=== PATIENT | male | born 1995 | race Caucasian/White ===

== ENCOUNTER 2018-10-16 15:20 | Observation (INO) | payer OTHER ==
[2018-10-16 15:52] VITALS: BMI 21.8
[2018-10-16 16:51] LABS: BASO % 0.5 % (0-2.0); EOS % 0.6 % (0-4.5); HEMATOCRIT 42.8 % (35.4-49); HEMOGLOBIN 14.9 GM/dL (11.7-16.9); LYMPH % 12.1 % (8-40); MCH 30.6 pg (25.7-33.7); MCHC 34.8 g/dl (32.0-35.9); MEAN CELL VOLUME 87.8 fl (80-96); MONO % 10.8 % (3.8-10.2); PLATELET COUNT 186 K/MM3 (134-434); RBC 4.87 M/mm3 (4.00-5.60); RDW 13.3 % (11.9-15.9); WHITE BLOOD COUNT 10.2 K/mm3 (4.0-10.0)
--- NOTE | 2018-10-16 16:51 | PDOC ---
History of Present Illness - General Chief Complaint: Pain Stated Complaint: SENT BY PCP Time Seen by Provider: 10/16/18 15:44 History Source: Patient, Family Exam Limitations: No Limitations - History of Present Illness Initial Comments: 10/16/18 16:42 Oneal Zheng is a 23 year old previously healthy male presenting with abdominal pain and new onset jaundice. Last night felt subjective fever to 99F along with episodes of vomiting yellow fluids and bilateral abdominal pain. Took one advil for fever which brought temp down to 97F. First episode of jaundice reported, no previous history of liver disease noted. Has history of one month of poor PO intake due to abd pain after eating, report 6-7lb weight loss in 3 weeks. Not eating much, denies fatty foods. Increased belching. Complains of suprapubic and bilateral UQ abd pain. Last month worked up for GC infection due to burning with urination and testicular pain, completed course of doxycycline, but testicular pain and burning persists. Denies hematuria, urine darker than normal. Denies alcohol use in last year, non-smoker, denies drug use. 10/16/18 20:18 Past History - Past Medical History Allergies/Adverse Reactions: Allergies Allergy/AdvReac Type Severity Reaction Status Date / Time No Known Allergies Allergy Verified 10/16/18 20:10 Home Medications: Ambulatory Orders No Home Medications 0 dose .ROUTE UTDICT 01/18/13 COPD: No - Suicide/Smoking/Psychosocial Hx Smoking Status: No Smoking History: Never smoked Have you smoked in the past 12 months: No Number of Cigarettes Smoked Daily: 0 Information on smoking cessation initiated: No Hx Alcohol Use: No Drug/Substance Use Hx: No Review of Systems - Review of Systems Constitutional: Yes: Fever, Loss of Appetite, Unintentional Wgt. Loss. No: Chills, Night Sweats, Weakness HEENTM: No: Blurred Vision, Hearing Loss, Difficulty Swallowing Respiratory: No: Cough, Shortness of Breath, Productive cough, Hemoptysis Cardiac (ROS): No: Chest Pain, Edema, Palpitations ABD/GI: Yes: Vomiting. No: Abdominal Distended, Constipated, Diarrhea, Rectal Bleeding, Abdominal cramping : Yes: Burning, Dysuria, Frequency, Flank Pain (R sided radiating to back). No: Discharge, Hematuria, Incontinence Musculoskeletal: No: Symptoms Reported Integumentary: No: Symptoms Reported Neurological: No: Symptoms reported *Physical Exam - Vital Signs Last Vital Signs Temp Pulse Resp BP Pulse Ox 98.6 F 99 H 18 134/89 97 10/16/18 15:50 10/16/18 15:50 10/16/18 15:50 10/16/18 15:50 10/16/18 15:50 - Physical Exam General Appearance: Yes: Nourished, Appropriately Dressed, Thin. No: Apparent Distress HEENT: positive: EOMI, HUGO, Normal Voice, Symmetrical, Scleral Icterus (R), Scleral Icterus (L). negative: Muffled/Hoarse voice, Pharyngeal Erythema, Rhinorrhea Neck: positive: Trachea midline, Supple. negative: Tender, Lymphadenopathy (R) , Lymphadenopathy (L) Respiratory/Chest: positive: Lungs Clear, Normal Breath Sounds. negative: Chest Tender, Respiratory Distress, Accessory Muscle Use Cardiovascular: positive: Regular Rhythm, Regular Rate. negative: Edema, Murmur , Gallop/S3, Gallop/S4 Gastrointestinal/Abdominal: positive: Normal Bowel Sounds, Tender (suprapubic tenderness, with bilateral UQ tenderness to palpation, negative murphys sign), Soft. negative: Organomegaly Male Genitalia: positive: other (Externa exam of genitalia shows uncircumcised penis with some circumferential erythema around the urethral opening with some urine and no visible pus. Meatus is non-tender with retraction of foreskin. No inguinal hernias noted bilaterally. Testicles are normal-appearing externally and non-tender to palpation. Patient reports some tenderness in the perineal region with palpation of testes.) Rectal Exam: positive: normal rectal tone, other (External exam shows some light erythema on the posterior buttocks around the region of the coccyx consistent with some minor irritation. External appearance of the anus shows no hemorrhoids or signs of bleeding. Prostate at 6 o'clock feels enlarged with tenderness to light and deep palpation. Rectal temperature 98.0F.). 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 Given patient's new onset fever with jaundice and diffuse abdominal pain after a period of loss of appetite and weight loss consistent with biliary pathology, most likely concerning for cholangitis vs. pancreatitis vs. gallstones. Will evaluate with CMP, CBC, direct bili, and abd US with abd CT. Jaundice could also be explained by hemolytic anemia vs. hepatic pathology such as hepatitis, ordering pertinent labs per PCP. Suprapubic pain, testicular pain, and dysuria with CVA tenderness concerning for persistent chlyamydia urethritis vs. UTI vs. pyelo, will evaluate with UA/ UC and abd US/CT. 10/16/18 17:37 UA shows high number bacteria with blood and positive leuk esterase and nitrites concerning for UTI vs. renal calculus, will reassess for this on CT abd. 10/16/18 17:52 B team conferred with PCP Dr. Garcia, will admit to Med/Surg under his service. 10/16/18 19:09 Performed a genitalia exam, found some periurethral erythema with urine flow, non-tender meatus, no inguinal hernias, but some tenderness to perineal area. Subsequent rectal exam reveals enlarged and tender prostate concerning for prostatitis, will confirm with CT abd read. 10/16/18 19:[address] Alarcon, no CT evidence of prostatic abscess, large vessels may support diagnosis of prostatitis. No clear evidence of any prostatic abscess. Unusual presentation of prostate tenderness after suspected chlamydia infection treated with outpatient doxycycline suggests failure of outpatient tx for STI vs. abnormal urological anatomy, and may be contributing to current UTI. UTI tx with ceftriaxone, consider 500mg levofloxacin qd for 6 weeks for tx of acute prostatitis. Cause of jaundice unclear at this time, bilirubin mildly elevated but otherwise hepatic labs WNL. Concern for infection-induced hemolysis vs. infection as trigger for familial/genetic anemia syndrome, hemolysis labs sent. *DC/Admit/Observation/Transfer Diagnosis at time of Disposition: Abdominal pain, UTI (urinary tract infection), Jaundice - Discharge Dispostion Decision to Admit order: Yes - Referrals - Patient Instructions - Post Discharge Activity
[2018-10-16 17:06] LABS: INR 1.28 (0.83-1.09); PROTHROMBIN TIME (PATIENT) 15.1 SEC (9.7-13.0)
[2018-10-16 17:09] LABS: ACTIVATED PTT 34.6 SECONDS (25.2-36.5)
[2018-10-16 17:19] LABS: EPI CELLS 1.1 /HPF (0-5/HPF); HYALINE CASTS 3 /lpf (0-8); PH,URINE 5.5 (5.0-8.0); URINE APPEARANCE TURBID; URINE BACTERIA 5879.8 /hpf (NEGATIVE); URINE BILIRUBIN NEGATIVE (NEGATIVE); URINE COLOR YELLOW; URINE GLUCOSE (UA) NEGATIVE (NEGATIVE); URINE KETONE TRACE (NEGATIVE); URINE LEUK ESTERASE 3+ (NEGATIVE); URINE NITRITE POSITIVE (NEGATIVE); URINE PROTEIN 2+ (NEGATIVE); URINE WBC 1494 /hpf (0-5)
[2018-10-16 17:23] LABS: ALBUMIN 4.5 g/dl (3.4-5.0); BLOOD UREA NITROGEN 10.6 mg/dL (7-18); CALCIUM 9.1 mg/dL (8.5-10.1); MAGNESIUM 2.3 mg/dL (1.8-2.4); POTASSIUM 3.8 mmol/L (3.5-5.1)
--- NOTE | 2018-10-16 17:32 | PDOC ---
Documentation entered by Davon Orozco SCRIBE, acting as scribe for Karlene Christiansen MD. Karlene Christiansen MD: This documentation has been prepared by the Ernesto reynolds Daniel, SCRIBE, under my direction and personally reviewed by me in its entirety. I confirm that the documentation accurately reflects all work, treatment, procedures, and medical decision making performed by me. Attending Attestation - Resident Resident Name: Antonio Paul - HPI HPI: 10/16/18 16:32 The patient is a 23 year old male with a past medical history of chlamydia here today for evaluation of jaundice, fever, and abdominal pain. The patient reports that he has had 1 month of left sided abdominal pain that migrated to his right upper quadrant. He notes mucous in his stool during this time. Patient reports nausea and vomiting last night and he woke up this morning with jaundice and fever. He also notes burning with urination. Patient denies headache, lightheadedness. Denies chills. Denies chest pain, shortness of breath. Denies diarrhea. Allergies: NKA PCP: Schuyler Garcia - Physicial Exam PE: 10/16/18 16:40 GENERAL: Awake, alert, and fully oriented, in no acute distress HEAD: No signs of trauma EYES: PERRLA, EOMI, sclera icteric, conjunctiva clear ENT: +tongue icteric. Auricles normal inspection, hearing grossly normal, nares patent, oropharynx clear without exudates. Moist mucosa NECK: Normal ROM, supple, no lymphadenopathy, JVD, or masses LUNGS: Breath sounds equal, clear to auscultation bilaterally. No wheezes, and no crackles HEART: Regular rate and rhythm, normal S1 and S2, no murmurs, rubs or gallops ABDOMEN: +tenderness in epigastrum and right upper quadrant. Soft, normoactive bowel sounds. No guarding, no rebound. No masses EXTREMITIES: Normal range of motion, no edema. No clubbing or cyanosis. No cords, erythema, or tenderness NEUROLOGICAL: Cranial nerves II through XII grossly intact. Normal speech, normal gait SKIN: Warm, Dry, normal turgor, no rashes or lesions noted. - Medical Decision Making 10/16/18 17:29 Pt presents to the ED complaining of a month long history of intermittent abdominal pain and dysuria and jaundice, vomiting and subjective fever that started last night. Jaundiced and tender in the RUQ on my exam. Differential includes choledocholithiasis, pancreatic mass, hepatitis, hemolysis. Will check labs, RUQ US and CT abdomen pelvis. UA shows evidence of UTI. Will start antibiotics and admit to medicine.
[2018-10-16 17:44] LABS: COCAINE, UR NEGATIVE ng/ml (CUTOFF=300); METHADONE, UR NEGATIVE ng/ml (CUTOFF=300); OPIATES, URI NEGATIVE ng/ml (CUTOFF=300); PHENCYCLIDINE,URINE NEGATIVE ng/ml (CUTOFF=25); URINE AMPHETAMINES NEGATIVE ng/ml (CUTOFF=500); URINE BARBITURATES NEGATIVE ng/ml (CUTOFF=200); URINE BENZODIAZEPINES NEGATIVE ng/ml (CUTOFF=200)
[2018-10-16] MEDS ORDERED: CEFTRIAXONE 1,000 MG in DEXTROSE 5%-WATER - 50 ML IVPB ONE (18:24)
[2018-10-16] MEDS ORDERED: CEFTRIAXONE 1 GM/50 ML BAG ONE (18:40)
--- NOTE | 2018-10-16 20:14 | HP ---
Admitting History and Physical - Admission Chief Complaint: n/v 2 days fever at night ?ruq pain scale3 ictericplus 2. hadstd w/u in my office neg except herpes 2 tx has anxiety!! denies all other complaints History Source: Patient Limitations to Obtaining History: No Limitations - Past Medical History Gastrointestinal: Yes: Other (ruq pain deep palpation) Renal/: Yes: UTI - Past Surgical History Past Surgical History: Yes: None - Smoking History Smoking history: Never smoked Have you smoked in the past 12 months: No Aproximately how many cigarettes per day: 0 - Alcohol/Substance Use Hx Alcohol Use: No - Social History Usual Living Arrangement: Yes: With Parent ADL: Independent History of Recent Travel: No Home Medications - Allergies Allergies/Adverse Reactions: Allergies Allergy/AdvReac Type Severity Reaction Status Date / Time No Known Allergies Allergy Verified 01/18/13 10:25 - Home Medications Home Medications: Ambulatory Orders No Home Medications 0 dose .ROUTE UTDICT 01/18/13 Family Disease History - Family Disease History Family History: Unremarkable Review of Systems - Review of Systems Constitutional: reports: Fever Eyes: reports: No Symptoms HENT: reports: No Symptoms Neck: reports: No Symptoms Cardiovascular: reports: No Symptoms Respiratory: reports: No Symptoms Gastrointestinal: reports: Abdominal Pain Genitourinary: reports: No Symptoms Musculoskeletal: reports: No Symptoms Integumentary: reports: No Symptoms Neurological: reports: No Symptoms Endocrine: reports: No Symptoms Hematology/Lymphatic: reports: No Symptoms Psychiatric: reports: Anxiety Physical Examination Vital Signs: Vital Signs Temperature 98.6 F 10/16/18 15:50 Pulse Rate 99 H 10/16/18 15:50 Respiratory Rate 18 10/16/18 15:50 Blood Pressure 134/89 10/16/18 15:50 O2 Sat by Pulse Oximetry (%) 97 10/16/18 15:50 Constitutional: Yes: Well Nourished Eyes: Yes: Sclera Icterus HENT: Yes: WNL Neck: Yes: WNL Cardiovascular: Yes: WNL Respiratory: Yes: WNL Gastrointestinal: Yes: Vomiting, Other (ruq pain deep palp) ...Rectal Exam: Yes: Deferred Renal/: Yes: WNL Breast(s): Yes: WNL Musculoskeletal: Yes: WNL Extremities: Yes: WNL Edema: No Peripheral Pulses WNL: Yes Integumentary: Yes: WNL Neurological: Yes: WNL ...Motor Strength: WNL Labs: CBC, BMP 10/16/18 16:45 10/16/18 16:45 Problem List - Problems (1) Nephritic syndrome Code(s): N05.9 - UNSP NEPHRITIC SYNDROME WITH UNSPECIFIED MORPHOLOGIC CHANGES (2) Nephritic syndrome Code(s): N05.9 - UNSP NEPHRITIC SYNDROME WITH UNSPECIFIED MORPHOLOGIC CHANGES Assessment/Plan id gi f/u merepenem x 1grm dose stat f/u rest labs iv 100 hr chk labs in am spoke to farther liver w/u in progrees chk ct abd pelvic and sono
[2018-10-16] MEDS ORDERED: ONDANSETRON 4 MG TABLET PO ONE (20:22)
[2018-10-16] MEDS ORDERED: ONDANSETRON *ODT* 4 MG TABLET ONE (20:33)
[2018-10-16] MEDS: DEXTROSE 5%-0.45% SALINE 1,000 ML IV SCH (20:39)
[2018-10-16] MEDS ORDERED: MEROPENEM 1 GM VIAL (RESTRICTED TO ID) IVPB ONE (21:00)
[2018-10-16] MEDS ORDERED: DEXTROSE 5%-WATER 100 ML IVPB ONE (21:01)
[2018-10-16] MEDS: MEROPENEM 1 GM in DEXTROSE 5%-WATER 100 ML IVPB SCH (21:31)
[2018-10-17] MEDS ORDERED: DEXTROSE 5%-WATER 100 ML IVPB ONE (01:14)
[2018-10-17] MEDS ORDERED: MEROPENEM 1 GM VIAL (RESTRICTED TO ID) IVPB ONE (01:14)
[2018-10-17 01:18] LABS: URINE RBC 43 /hpf (0-4)
[2018-10-17] MEDS: MEROPENEM 1 GM in DEXTROSE 5%-WATER 100 ML IVPB SCH (01:19)
--- NOTE | 2018-10-17 07:55 | CON.GI ---
Consult Consult Specialty:: GI Referred by:: Dr Schuyler Garcia Reason for Consultation:: Jaundice - History of Present Illness Chief Complaint: Abdominal cramping with nausea History of Present Illness: Patient is a 23 y/o male with no significant past medical history. I was consulted to evaluate patient for jaundice of unknown etiology. Patient states that yesterday he noticed his eyes were yellow and notified his PCP who said he should go to ER. Patient states that 1 month ago patient was treated with doxycycline and and develop constipation and was prescribed Miralax. After taking Miralax he noticed "mucous" in his stool about 1 week ago. Over the past 3 weeks he began experiencing intermittent lower abdominal cramping that began in LLQ that then radiated to RLQ with intermittent episodes of non-bloody vomitus clear or yellow in color. On Wednesday patient developed a low grade fever 99.2F and began having episodes of vomiting clear contents two times both Wednesday and Wednesday. Patient has also been complaining of poor appetite with a 5-6lb weight loss in 3 weeks. Labs show normal GGT, total bili 3.0, direct bili 0.4, AST 12, Ammonia <10, CRP 3.8, and Hepatitis profile is pending. ABdominal CT scan is pending official read. - History Source History Provided By: Patient Limitations to Obtaining History: No Limitations - Past Medical History Gastrointestinal: Yes: Other (ruq pain deep palpation) Renal/: Yes: UTI - Past Surgical History Past Surgical History: Yes: None - Alcohol/Substance Use Hx Alcohol Use: No - Smoking History Smoking history: Never smoked Have you smoked in the past 12 months: No Aproximately how many cigarettes per day: 0 - Social History ADL: Independent History of Recent Travel: No Home Medications - Allergies Allergies/Adverse Reactions: Allergies Allergy/AdvReac Type Severity Reaction Status Date / Time No Known Allergies Allergy Verified 10/16/18 20:10 - Home Medications Home Medications: Ambulatory Orders No Home Medications 0 dose .ROUTE UTDICT 01/18/13 Review of Systems - Review of Systems Constitutional: reports: Loss of Appetite, Weakness Eyes: reports: No Symptoms HENT: reports: No Symptoms Neck: reports: No Symptoms Cardiovascular: reports: No Symptoms Respiratory: reports: No Symptoms Gastrointestinal: reports: Abdominal Pain, Vomiting Genitourinary: reports: No Symptoms Breasts: reports: No Symptoms Reported Musculoskeletal: reports: No Symptoms Integumentary: reports: No Symptoms Neurological: reports: No Symptoms Endocrine: reports: No Symptoms Hematology/Lymphatic: reports: No Symptoms Psychiatric: reports: No Symptoms Physical Exam-GI Vital Signs: Vital Signs Temperature 97.7 F 10/17/18 06:39 Pulse Rate 69 10/17/18 06:39 Respiratory Rate 20 10/17/18 06:39 Blood Pressure 105/58 L 10/17/18 06:39 O2 Sat by Pulse Oximetry (%) 99 10/16/18 23:12 Constitutional: Yes: No Distress, Calm Eyes: Yes: Sclera Icterus HENT: Yes: Atraumatic Cardiovascular: Yes: Regular Rate and Rhythm Respiratory: Yes: Regular, CTA Bilaterally Gastrointestinal Inspection: Yes: WNL. No: Ascites, Distention, Hernia, Scars, Other ...Auscultate: Yes: Normoactive Bowel Sounds. No: Hyperactive Bowel Sounds, Hypoactive Bowel Sounds, No Bowel Sounds, Other ...Palpate: Yes: Tenderness (RLQ and LLQ). No: Firm/Rigid, Guarding, Hepatomegaly, Mass, Pulsatile Mass, Soft, Splenomegaly, Tenderness, Epigastium, Tenderness, Rebound, Other ...Percussion: Yes: Tympanitic. No: Dullness, Fluid Wave, Other Neurological: Yes: Alert, Oriented Psychiatric: Yes: Alert, Oriented Labs: CBC, BMP 10/16/18 16:45 10/16/18 16:45 INR, PTT INR 1.28 (0.83-1.09) H 10/16/18 16:45 Fibrinogen 421.0 mg/dL (238-498) 10/16/18 16:45 Imaging - Results Cat Scan: Pending Problem List - Problems (1) Abdominal pain Assessment/Plan: -FUA to R/O impaction -Pantoprazole 40mg IVPB q12h -Flagyl 250mg IVPB -Abdominal CT scan pending official read -low fiber, lactose free diet Code(s): R10.9 - UNSPECIFIED ABDOMINAL PAIN (2) Jaundice Assessment/Plan: -Total Bili 3.0 -Direct Bili 0.4 -monitor LFTs and bilirubin Code(s): R17 - UNSPECIFIED JAUNDICE (3) Nausea & vomiting Assessment/Plan: -Reglan IVPB -Pantoprazole Code(s): R11.2 - NAUSEA WITH VOMITING, UNSPECIFIED
--- NOTE | 2018-10-17 08:07 | CON.ID ---
Consult Consult Specialty:: infectious diseases Referred by:: Reason for Consultation:: uti,jaundice - History of Present Illness Chief Complaint: abd pain,vomiting,low grade fever History of Present Illness: 23 y/o male with no significant past medical history. with jaundice of unknown etiology. Patient states that yesterday he noticed his eyes were yellow and notified his PCP who said he should go to ER. Patient states that 1 month ago patient was treated with doxycycline and and develop constipation and was prescribed Miralax. After taking Miralax he noticed "mucous" in his stool about 1 week ago. Over the past 3 weeks he began experiencing intermittent lower abdominal cramping that began in LLQ that then radiated to RLQ with intermittent episodes of non-bloody vomitus clear or yellow in color. On Wednesday patient developed a low grade fever 99.2F and began having episodes of vomiting clear contents two times both Wednesday and Wednesday. Patient has also been complaining of poor appetite with a 5-6lb weight loss in 3 weeks. Labs show normal GGT, total bili 3.0, direct bili 0.4, AST 12, Ammonia <10, CRP 3.8, and Hepatitis profile is pending. ABdominal CT scan is pending official read. according to he patient he has been having vomiting since he was a child he also has been having chronic constipation currently he is feeling better - History Source History Provided By: Patient, Family Member Limitations to Obtaining History: No Limitations - Past Medical History Gastrointestinal: Yes: Other (ruq pain deep palpation) Renal/: Yes: UTI - Past Surgical History Past Surgical History: Yes: None - Alcohol/Substance Use Hx Alcohol Use: No - Smoking History Smoking history: Never smoked Have you smoked in the past 12 months: No Aproximately how many cigarettes per day: 0 - Social History ADL: Independent History of Recent Travel: No Home Medications - Allergies Allergies/Adverse Reactions: Allergies Allergy/AdvReac Type Severity Reaction Status Date / Time No Known Allergies Allergy Verified 10/16/18 20:10 - Home Medications Home Medications: Ambulatory Orders No Home Medications 0 dose .ROUTE UTDICT 01/18/13 Review of Systems - Review of Systems Constitutional: reports: Fever Eyes: reports: No Symptoms HENT: reports: No Symptoms Neck: reports: No Symptoms Cardiovascular: reports: No Symptoms Respiratory: reports: No Symptoms Gastrointestinal: reports: Bloating, Constipation, Vomiting Genitourinary: reports: No Symptoms Musculoskeletal: reports: No Symptoms Integumentary: reports: No Symptoms Neurological: reports: No Symptoms Endocrine: reports: No Symptoms Hematology/Lymphatic: reports: No Symptoms Psychiatric: reports: No Symptoms Physical Exam Vital Signs: Vital Signs Temperature 97.7 F 10/17/18 06:39 Pulse Rate 69 10/17/18 06:39 Respiratory Rate 20 10/17/18 06:39 Blood Pressure 105/58 L 10/17/18 06:39 O2 Sat by Pulse Oximetry (%) 99 10/16/18 23:12 Constitutional: Yes: Well Nourished, Calm, Mild Distress Eyes: Yes: Sclera Icterus HENT: Yes: Atraumatic, Normocephalic Neck: Yes: Supple, Trachea Midline Cardiovascular: Yes: Regular Rate and Rhythm Respiratory: Yes: Regular, CTA Bilaterally Gastrointestinal: Yes: Normal Bowel Sounds, Soft, Tenderness (in both lowe quadrants,left more than the right) Musculoskeletal: Yes: WNL Extremities: Yes: WNL Neurological: Yes: Alert, Oriented Psychiatric: Yes: Alert, Oriented Labs: CBC, BMP 10/16/18 16:45 10/16/18 16:45 Imaging - Results X-ray: Image Reviewed Cat Scan: Image Reviewed Assessment/Plan this is a patient with chr constipation,vomiting episodes and now abd pain which has started from about a month also patient has uti now i am worried that the patient might have autoimmune disease gi is on the case plan i am going to treat him with ceftriaxone for now rajni wait cx results gi input await for all imaging results rest as per the team
[2018-10-17 08:50] LABS: BASO % 0.6 % (0-2.0); EOS % 1.8 % (0-4.5); HEMATOCRIT 41.5 % (35.4-49); HEMOGLOBIN 14.4 GM/dL (11.7-16.9); LYMPH % 23.7 % (8-40); MCH 30.5 pg (25.7-33.7); MCHC 34.6 g/dl (32.0-35.9); MEAN CELL VOLUME 87.9 fl (80-96); MEAN PLT VOLUME 10.1 fl (7.5-11.1); MONO % 11.4 % (3.8-10.2); NEUT % 62.5 % (42.8-82.8); PLATELET COUNT 183 K/MM3 (134-434); RBC 4.72 M/mm3 (4.00-5.60); RDW 13.2 % (11.9-15.9); WHITE BLOOD COUNT 6.1 K/mm3 (4.0-10.0)
[2018-10-17 09:26] LABS: INR 1.16 (0.83-1.09); PROTHROMBIN TIME (PATIENT) 13.7 SEC (9.7-13.0)
[2018-10-17] MEDS ORDERED: PT OWN MED DRAWER 7, Y5N ONE ×3 (09:48→18:13)
[2018-10-17] MEDS: PANTOPRAZOLE SODIUM 40 MG VIAL IVPUSH SCH ×2 (09:56→21:25)
[2018-10-17] MEDS: METOCLOPRAMIDE HCL INJECTION 10 MG/2 ML VIAL IVPB SCH ×2 (09:56→16:31)
[2018-10-17] MEDS ORDERED: PANTOPRAZOLE SODIUM 40 MG in SODIUM CHLORIDE 100 ML IVPB SCH (10:00)
[2018-10-17 10:16] LABS: ALBUMIN 4.2 g/dl (3.4-5.0); BILIRUBIN,TOTAL 2.1 mg/dL (0.2-1); BLOOD UREA NITROGEN 10.1 mg/dL (7-18); CALCIUM 9.4 mg/dL (8.5-10.1); POTASSIUM 3.7 mmol/L (3.5-5.1); TOT PROT 7.6 g/dl (6.4-8.2)
[2018-10-17] MEDS ORDERED: cefTRIAXone SODIUM 1 GM VIAL ONE (11:15)
[2018-10-17] MEDS ORDERED: DEXTROSE 5%-WATER - 50 ML IVPB ONE (11:15)
--- NOTE | 2018-10-17 11:22 | PN ---
Progress Note, Physician Chief Complaint: c/o constipation less abd pain less headache - Current Medication List Current Medications: Active Medications Dextrose/Sodium Chloride (D5-1/2ns -) 1,000 mls @ 83 mls/hr IV ASDIR SABINA Last Admin: 10/16/18 20:39 Dose: 83 mls/hr Ceftriaxone Sodium 1 gm/ (Dextrose) 50 mls @ 100 mls/hr IVPB DAILY SABINA; Protocol Metronidazole (Flagyl 250mg Premixed Ivpb -) 250 mg in 50 mls @ 50 mls/hr IVPB Q8H-IV SABINA Metoclopramide HCl (Reglan Injection -) 10 mg IVPB Q8H SABINA Last Admin: 10/17/18 09:56 Dose: 10 mg Pantoprazole Sodium (Protonix Iv) 40 mg IVPUSH BID SABINA Last Admin: 10/17/18 09:56 Dose: 40 mg Polyethylene Glycol (Miralax (For Daily Use) -) 17 gm PO DAILY SABINA - Objective Vital Signs: Vital Signs Temperature 97.7 F 10/17/18 06:39 Pulse Rate 69 10/17/18 06:39 Respiratory Rate 20 10/17/18 06:39 Blood Pressure 105/58 L 10/17/18 06:39 O2 Sat by Pulse Oximetry (%) 99 10/16/18 23:12 Constitutional: Yes: Anxious Eyes: Yes: WNL HENT: Yes: WNL Neck: Yes: WNL Cardiovascular: Yes: WNL Respiratory: Yes: WNL Gastrointestinal: Yes: Normal Bowel Sounds, Vomiting ...Rectal Exam: Yes: Deferred Genitourinary: Yes: WNL Breast(s): Yes: WNL Musculoskeletal: Yes: WNL Extremities: Yes: WNL Edema: No Psychiatric: Yes: WNL Labs: CBC, BMP 10/17/18 08:05 10/17/18 08:05 INR, PTT INR 1.16 (0.83-1.09) H 10/17/18 08:05 Fibrinogen 421.0 mg/dL (238-498) 10/16/18 16:45 Problem List - Problems (1) 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 d/c in am bili normaloizing miralax will tx ibs c outpt? gi ? bx colon ? hi trimble doubt
[2018-10-17] MEDS: CEFTRIAXONE 1 GM in DEXTROSE 5%-WATER - 50 ML IVPB SCH (11:27)
[2018-10-17] MEDS: DEXTROSE 5%-0.45% SALINE 1,000 ML IV SCH (14:47)
[2018-10-18] MEDS ORDERED: PT OWN MED DRAWER 7, Y5N ONE ×2 (01:36→09:22)
[2018-10-18] MEDS: METOCLOPRAMIDE HCL INJECTION 10 MG/2 ML VIAL IVPB SCH ×2 (01:49→09:32)
[2018-10-18 06:23] VITALS: BP 104/58; PULSE 72; TEMP 98.3
--- NOTE | 2018-10-18 07:35 | PN.GI ---
GI Progress Note Subjective: patients nausea and vomiting improved, had 2 good BMS overnight, tolerated diet Reviewed CT--questionable right hepatic cyst, retained stool right colon - Objective Vital Signs: Vital Signs Temperature 98.3 F 10/18/18 06:00 Pulse Rate 72 10/18/18 06:00 Respiratory Rate 20 10/18/18 06:00 Blood Pressure 104/58 L 10/18/18 06:00 O2 Sat by Pulse Oximetry (%) 100 10/17/18 22:51 ...Palpate: Yes: Soft. 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
[2018-10-18 07:53] LABS: BASO % 1.1 % (0-2.0); HEMATOCRIT 42.6 % (35.4-49); HEMOGLOBIN 14.7 GM/dL (11.7-16.9); LYMPH % 26.5 % (8-40); MCH 30.6 pg (25.7-33.7); MCHC 34.5 g/dl (32.0-35.9); MEAN CELL VOLUME 88.5 fl (80-96); MEAN PLT VOLUME 10.1 fl (7.5-11.1); MONO % 12.4 % (3.8-10.2); RBC 4.81 M/mm3 (4.00-5.60); RDW 13.1 % (11.9-15.9); WHITE BLOOD COUNT 4.7 K/mm3 (4.0-10.0)
[2018-10-18 08:09] LABS: BILIRUBIN,DIRECT 0.4 mg/dL (0.0-0.2); BILIRUBIN,TOTAL 2.2 mg/dL (0.2-1); BLOOD UREA NITROGEN 6.7 mg/dL (7-18); CALCIUM 9.4 mg/dL (8.5-10.1); CREATININE 0.8 mg/dL (0.55-1.3); POTASSIUM 3.9 mmol/L (3.5-5.1)
[2018-10-18] MEDS ORDERED: cefTRIAXone SODIUM 1 GM VIAL ONE (09:27)
[2018-10-18] MEDS ORDERED: DEXTROSE 5%-WATER - 50 ML IVPB ONE (09:27)
[2018-10-18 09:31] LABS: PLATELET COUNT 213 K/MM3 (134-434)
[2018-10-18] MEDS: PANTOPRAZOLE SODIUM 40 MG VIAL IVPUSH SCH (09:32)
[2018-10-18] MEDS: CEFTRIAXONE 1 GM in DEXTROSE 5%-WATER - 50 ML IVPB SCH (09:32)
[2018-10-18] MEDS ORDERED: POLYETHYLENE GLYCOL 3350 119 GM BTL PO SCH (10:00)
--- NOTE | 2018-10-18 10:25 | DS ---
Physical Examination Vital Signs: Vital Signs Temperature 98.3 F 10/18/18 06:00 Pulse Rate 72 10/18/18 06:00 Respiratory Rate 20 10/18/18 06:00 Blood Pressure 104/58 L 10/18/18 06:00 O2 Sat by Pulse Oximetry (%) 100 10/18/18 07:00 Constitutional: Yes: Well Nourished, No Distress Eyes: Yes: WNL HENT: Yes: Other (less icteric) Neck: Yes: WNL Cardiovascular: Yes: WNL Respiratory: Yes: WNL Gastrointestinal: Yes: WNL, Normal Bowel Sounds, Soft ...Rectal Exam: Yes: WNL, Deferred Renal/: Yes: WNL Breast(s): Yes: WNL Musculoskeletal: Yes: WNL Extremities: Yes: WNL Edema: No Peripheral Pulses WNL: Yes Integumentary: Yes: WNL Neurological: Yes: WNL ...Motor Strength: WNL Psychiatric: Yes: WNL Labs: CBC, BMP 10/18/18 06:20 10/18/18 06:20 Discharge Summary Reason For Visit: UTI,JAUNDICE,ABD PAIN Current Active Problems Abdominal pain (Acute) Jaundice (Acute) Nausea & vomiting (Acute) Nephritic syndrome (Acute) Nephritic syndrome (Acute) UTI (urinary tract infection) (Acute) - Instructions Diet, Activity, Other Instructions: appt made w ne and gi 1100 wednesday flagl navdeep wilburn out pt called in at [facility] d/c home today - Home Medications Comprehensive Discharge Medication List: Ambulatory Orders No Home Medications 0 dose .ROUTE UTDICT 01/18/13
[2018-10-18 20:06] LABS: HEP A AB, IGM Negative (Negative); HEP B CORE AB, TOT Negative (Negative)
== END 2018-10-18 11:26 | disposition home or self-care (01) ==
LOC: SUPCPDRO 15:20 → JER 15:20 → INTOOBSV 17:44 → JERBED 17:44 → J8W 20:48
PROVIDERS: ADMIT Family Medicine; ATTEND Family Medicine
PROC: 3E03329 Introduction of Other Anti-infective into Peripheral Vein, Percutaneous Approach (ICD-10-PCS; principal; 2018-10-16)
PROC: 3E0337Z Introduction of Electrolytic and Water Balance Substance into Peripheral Vein, Percutaneous Approach (ICD-10-PCS; 2018-10-16)
PROC: 3E033GC Introduction of Other Therapeutic Substance into Peripheral Vein, Percutaneous Approach (ICD-10-PCS; 2018-10-16)
DX: N39.0 Urinary tract infection, site not specified (principal); R17 Unspecified jaundice; R10.9 Unspecified abdominal pain; N05.9 Unspecified nephritic syndrome with unspecified morphologic changes; R11.2 Nausea with vomiting, unspecified; Z87.438 Personal history of other diseases of male genital organs
CPT/HCPCS: 36415; 74019-TC-FY; 74177-TC; 76705-TC; 80048; 80053; 80307; 81003; 82140; 82247; 82248; 82977; 83690; 83735; 85025; 85384; 85610; 85651; 85730; 86140; 86704; 86706; 86707; 86708; 86709; 86850; 86900; 86901; 87086; 87186; 87340; 87491; 87591; 99284-25; G0378